=== PATIENT | female | born 1955 | race Caucasian/White ===

== ENCOUNTER 2021-12-02 11:53 | Observation (INO) | payer MEDICARE ==
[~2021-12-02] VITALS: Ht 170.2 cm; Wt 94.8 kg
[2021-12-02] MEDS ORDERED: ASPIRIN 325 MG TAB PO ONE ×2 (13:00→13:15)
[2021-12-02] MEDS ORDERED: CLOPIDOGREL BISULFATE 75 MG TAB PO ONE ×2 (13:00→13:15)
[2021-12-02] MEDS ORDERED: MAGNESIUM/ALUMINUM/SIMETHICONE 30 ML UDC PO PRN (13:30)
[2021-12-02] MEDS ORDERED: ACETAMINOPHEN 325 MG TAB PO PRN (13:30)
[2021-12-02] MEDS ORDERED: HYDRALAZINE HCL 20 MG/ML VIAL IV PRN (13:30)
[2021-12-02] MEDS ORDERED: GUAIFENESIN/DEXTROMETHORPHAN LIQD 5 ML UDC PO PRN (13:30)
[2021-12-02] MEDS ORDERED: MELATONIN 3 MG TAB PO PRN (13:30)
[2021-12-02] MEDS ORDERED: DOCUSATE SODIUM 100 MG CAP PO PRN (13:30)
[2021-12-02] MEDS ORDERED: ONDANSETRON HCL INJ 2MG/ML 2ML 2 MG/ML VIAL IV PRN (13:30)
[2021-12-02 13:41] VITALS: BP 126/84
[2021-12-02 13:43] VITALS: BP 126/84
[2021-12-02 13:44] VITALS: BP 126/84
[2021-12-02 15:56] VITALS: BP 148/81
[2021-12-02 16:42] LABS: CHOL/HDL RATIO 4.4 (3.0-3.6)
[2021-12-02] MEDS ORDERED: DIAZEPAM 5 MG TAB PO PRN (19:45)
[2021-12-02 20:00] VITALS: BP 128/90
[2021-12-02 21:00] VITALS: BP 128/90
[2021-12-02] MEDS ORDERED: ATORVASTATIN 40 MG TAB PO SCH (21:00)
[2021-12-03] VITALS: BP 150/83
[2021-12-03 04:00] VITALS: BP 132/79
[2021-12-03 08:12] VITALS: BP 120/86
[2021-12-03] MEDS ORDERED: CLOPIDOGREL BISULFATE 75 MG TAB PO SCH (09:00)
[2021-12-03] MEDS ORDERED: MULTIVITAMINS/MINERALS TAB PO SCH (09:00)
[2021-12-03] MEDS ORDERED: ASPIRIN 81 MG ENTERIC COATED PO SCH (09:00)
[2021-12-03 11:59] VITALS: BP 109/62
[2021-12-03] MEDS ORDERED: ATORVASTATIN CA40 MG PO (12:41)
[2021-12-03] MEDS ORDERED: PLAVIX75 MG PO (12:41)
[2021-12-03] MEDS ORDERED: ASPIRIN EC81 MG PO (12:41)
== END 2021-12-03 15:28 | disposition home or self-care (01) ==
LOC: MED/SURG3 12:46
PROVIDERS: ADMIT Internal Medicine; ATTEND Internal Medicine
DX: I63.9 Cerebral infarction, unspecified (principal); F17.210 Nicotine dependence, cigarettes, uncomplicated; E78.5 Hyperlipidemia, unspecified; R51.9 Headache, unspecified; R90.82 White matter disease, unspecified; Z20.822 Contact with and (suspected) exposure to COVID-19
CPT/HCPCS: 36415; 70551; 80061; 83036; G0378 ×2